=== PATIENT | female | born 1975 | race Two or more races ===

== ENCOUNTER 2020-02-05 07:58 | Day surgery (SDC) | payer OTHER ==
[2020-02-05] MEDS ORDERED: PERCOCET 5-3251 EACH PO (13:59)
== END 2020-02-05 18:10 | disposition home or self-care (01) ==
LOC: CIR.AMB 07:58
PROVIDERS: ATTEND Specialist
DX: N93.8 Other specified abnormal uterine and vaginal bleeding (principal); Z20.828 Contact with and (suspected) exposure to other viral communicable diseases